=== PATIENT | male | born 1945 | race Caucasian/White ===

== ENCOUNTER 2017-04-09 18:11 | Emergency (ER) | payer MEDICARE ==
[~2017-04-09] VITALS: Ht 185.4 cm; Wt 72.7 kg
[2017-04-09 18:22] VITALS: BP 119/67; PULSE 60; RESP 16; O2SAT 97
--- NOTE | 2017-04-09 18:31 | ED.REPORT ---
HPI-Extremity Problem Upper Date of Service Apr 09, 2017 ED Provider: Dr. Coelho Pt is an otherwise healthy 71 year old male who presents to the ED via EMS complaining of right wrist pain after falling earlier today. Pt lost his balance and hit his wrist. He denies dizziness, head injury, and LOC. He denies taking any blood thinners including Warfarin. Pt denies drug and alcohol use. He lives alone. Nursing Notes Stated Complaint: POSSIBLE RIGHT FRACTURED WRIST Chief Complaint: Extremity Trauma Nursing Notes Reviewed: Yes Allergies: Coded Allergies: Sulfa (Sulfonamide Antibiotics) (Verified Allergy, Unknown, 12/19/14) No Active Prescriptions or Reported Meds General Time Seen by MD: 18:30 Chief Complaint Wrist injury right Hx Obtained From: Patient, EMS Arrived By: Ambulance Symptom Duration: Since onset Location: : Wrist right Quality: Painful Severity: Current: Moderate Severity: Maximum: Moderate Recent Healthcare: No recent doctor visit, No recent hospitalization Similar Sx Previous: No Past Medical History Past Medical History Notes: Dr. Vazquez Past Medical History Denies: Congestive heart failure, Diabetes mellitus Past Surgical History Denies Smoking History Current Every Day Smoker Social History Alcohol Use: Denies alcohol use Drug Use: Denies drug use Ambulatory Status Independent Review of Systems Denies head injury Musculoskeletal: Reports: Extremity pain, Extremity swelling, Denies: Neck pain Neurologic: Denies: Change LOC, Dizziness Complete sys rev & neg: except as marked. Physical Exam Initial Vital Signs Vital Signs (First) Date Time Temp Pulse Resp B/P Pulse Ox O2 Delivery O2 Flow Rate FiO2 04/09/17 18:22 36.6 60 16 119/67 97 Room Air Initial VS: Reviewed Head / Eyes: Atraumatic, Normocephalic, PERRL ENT: Mucous membranes moist, Conjunctiva normal, No scleral icterus Neck: Supple, Full range of motion Respiratory: Breath sounds normal, Clear to auscultation, No respiratory distress Cardiovascular: Regular rate & rhythm, Heart sounds normal, Intact distal pulses Abdomen / GI: Soft, Non-tender Lower Extremities: Vascular intact, Neuro intact Skin: Warm, Dry, No cyanosis Neurologic: Alert, Oriented, Nonfocal Psychiatric: Mood/affect normal, Behavior normal General/Constitutional: Awake, Alert, Cooperative, Not toxic appearing Wrist / Hand: No deformity, Neurologic intact, Vascular intact Soft tissue swelling and tenderness to right lateral wrist and forearm. Interpretation & Diagnostics X-Ray Interpretation Xray Interpretation: IMPRESSION: Distal, comminuted radial and ulnar fractures. Dictated by: Sindy Steinberg M.D. on 04/09/2017 at 20:08 Study Performed: Two views X-Ray Ordered: Radius ulna right Interpretation / Wet Read by: Interpret - Radiologist Xray Interpretation: IMPRESSION: Comminuted, distal radial and ulnar fractures as above. Dictated by: Sindy Steinberg M.D. on 04/09/2017 at 20:07 Study Performed: Minimum 3 views X-Ray Ordered: Wrist right Interpretation / Wet Read by: Interpret - Radiologist Re-Eval/Medical Decision Source of Hx: Old records Re-Evaluation/Progress : Time of Eval: 20:43 Re-Evaluation/Progress Note: Pt rechecked. Neurocheck on splint was performed. Informed pt of plan for discharge. Pt understands and agrees with plan for discharge. F/U instructions and RTER warnings given. All questions addressed. Counseled Regarding: Diagnosis, Lab results, Need for follow-up, When/why to return to ED Discharge & Departure Impression: Primary Impression: Fracture of distal radius and ulna Encounter type: initial encounter Fracture type: closed Laterality: unspecified laterality Qualified Code: S52.509A - Unspecified fracture of the lower end of unspecified radius, initial encounter for closed fracture Disposition: Home Discharge Condition All VS Reviewed: Yes Condition: Stable Patient Instructions: Splint Care (ED), Wrist Fracture in Adults (GEN) Additional Instructions: Your wrist was immobilized and use the sling. Elevate your arm as much as possible. I believe your fracture may need surgery. It will probably need to be in a cast either way. Call the referral orthopedic surgeon tomorrow morning to set up a follow-up for later this week. For pain, take 1-2 [place] every 6 hours as needed[address] Do not drive or drink alcohol or consume acetaminophen for taking the [place]. Return to the Emergency Department if any problems or any new or worsening symptoms occur. Referrals: Eddi Vazquez MD (PCP) Nic Lozano Attestation Portions of this note were transcribed by Mary Carmen De La Paz. I, Dr. Coelho personally performed the history, physical exam and medical decision-making; I reviewed and confirmed the accuracy of the information in the transcribed note. Signed by: Kimberly Koroma 04/09/17 and 20:50 copies to: Nic Lozano DO; Eddi Vazquez MD, Todd P DO Apr 09, 2017 18:31 Mary Carmen English Apr 09, 2017 18:35
--- NOTE | 2017-04-09 20:10 | DRSVH ---
PROCEDURE: X-RAY RIGHT WRIST COMPLETE, MINIMUM THREE VIEWS ([id number]) INDICATIONS: fall, swelling up to forearm TECHNIQUE: 3 views of the wrist were acquired. COMPARISON: None. FINDINGS: Bones: There is a comminuted, displaced fracture of the distal radius and a comminuted, displaced fra cture of the distal ulna. There is also an old non-unified ulnar styloid fracture. There is intra-art icular extension of the distal ulnar fracture and probable intra-articular extension of the distal ra dial fracture. Bones are osteopenic. Soft tissues: No suspicious soft tissue calcifications. IMPRESSION: Comminuted, distal radial and ulnar fractures as above. Dictated by: Sindy Steinberg M.D. on 04/09/2017 at 20:07 Approved by: Sindy Steinberg M.D. on 04/09/2017 at 20:08
--- NOTE | 2017-04-09 20:11 | DRSVH ---
PROCEDURE: X-RAY RIGHT FOREARM, TWO VIEWS ([id number]) INDICATIONS: fall, swelling up to forearm TECHNIQUE: 2 views of the forearm were acquired. COMPARISON: None. FINDINGS: Bones: There is a distal comminuted radial and distal comminuted ulnar fracture. The more proximal po rtions of the radius and ulna are intact. Visualized portions of the humerus are intact. Soft tissues: No suspicious soft tissue calcifications or masses. IMPRESSION: Distal, comminuted radial and ulnar fractures. Dictated by: Sindy Steinberg M.D. on 04/09/2017 at 20:08 Approved by: Sindy Steinberg M.D. on 04/09/2017 at 20:09
[2017-04-09] MEDS ORDERED: _HYDROcodone/APAP 5-325 mg Tablet PO PRN (21:10)
[2017-04-09 21:54] VITALS: BP 125/70; PULSE 73; RESP 16; O2SAT 100
== END 2017-04-09 21:00 | disposition home or self-care (01) ==
LOC: SED 18:11 → EDBD 18:11 → SED 21:00
DX: S52.591A Other fractures of lower end of right radius, initial encounter for closed fracture (principal); S52.691A Other fracture of lower end of right ulna, initial encounter for closed fracture; W19.XXXA Unspecified fall, initial encounter; Y93.89 Activity, other specified; Y92.9 Unspecified place or not applicable; Y99.8 Other external cause status; F17.200 Nicotine dependence, unspecified, uncomplicated; Z88.2 Allergy status to sulfonamides